=== PATIENT | female | born 1955 | race Caucasian/White ===

== ENCOUNTER 2016-06-16 11:51 | Day surgery (SDC) | payer BC ==
--- NOTE | ~2016-06-16 | EGD ---
EGD REPORT [facility] [address] [address] NAME: SARAH ZHENG : 55 STATUS : [facility]#: [id number] AGE: 60 ADM/REG DATE : 06/16/16 MR#: [id number] REPORT SERV DATE: 07/17/16 DICTATED BY: CLARISSA KYLE DATE: 07/17/16 REPORT STATUS : Draft [facility] DATE: 07/17/16 Pulmonology Patient Name: Sarah Zheng Procedure Date: 06/16/2016 6:03 PM Date of : 1955 Attending MD: DANNY KYLE MD Procedure Date No Time: 06/16/2016 Procedure: Thoracentesis Indications: Right sided pleural effusion Providers: DANNY KYLE MD Referring MD: MATY RAMOS IV Medicines: Intradernal lidocaine 2% with epinephrine 1:100,000 10 mls Complications: No immediate complications Procedure: Pre-Anesthesia Assessment: - A History and Physical has been performed. Patient meds and allergies have been reviewed. The risks and benefits of the procedure and the sedation options and risks were discussed with the patient. All questions were answered and informed consent was obtained. Patient identification and proposed procedure were verified prior to the procedure by the physician and the nurse in the procedure room. Mental Status Examination: alert and oriented. Respiratory Examination: poor air movement. CV Examination: normal and RRR, no murmurs, no S3 or S4. ASA Grade Assessment: III - A patient with severe systemic disease. After reviewing the risks and benefits, the patient was deemed in satisfactory condition to undergo the procedure. The anesthesia plan was to use minimal sedation / analgesia (anxiolysis). Immediately prior to administration of medications, the patient was re-assessed for adequacy to receive sedatives. The heart rate, respiratory rate, oxygen saturations, blood pressure, adequacy of pulmonary ventilation, and response to care were monitored throughout the procedure. The physical status of the patient was re-assessed after the procedure. Findings: After consent was obtained, a time out was performed. The patient was placed in the appropriate position. Ultrasound survey of the left chest was performed with identification of pleural fluid and surrounding structures including the diaphragm and lung tissue. Ultrasound image interpretation: The depth to the chest wall is approximately 4 cms. The depth of the pocket is approximately 3 cms. Ultrasound images were permanently documented. The site of entry was EGD REPORT [address] [address] NAME: SARAH ZHENG : 55 STATUS : [facility]#: [id number] AGE: 60 ADM/REG DATE : 06/16/16 MR#: [id number] REPORT SERV DATE: 07/17/16 DICTATED BY: CLARISSA KYLE DATE: 07/17/16 REPORT STATUS : Draft TRANSCRIBED BY: [employer] SERVICES DATE: 07/17/16 marked using ultrasound guidance. After donning cap, mask, sterile gown and gloves, the patient was prepped with chlorhexadine and drapped. 10 ccs of 2% lidocaine with epinephrine 1:100,000 was used to numb the region. A finder needle was then used to locate fluid with aspiration of serous fluid. A small incision was performed at insertion site and a temporary 8 Tajik pleural catheter was inserted over a needle. The catheter was attached to a suction device (vacuum bottle) and 50 mls of serous fluid was removed. Impression: 50 mls of serous fluid was removed. Additional pleural fluid was noted but could not be removed. Recommendation: - Await test results. - Chest X-ray post-procedure. - Follow up with referring physician. Attending Participation: I personally performed the entire procedure. DANNY KYLE MD 06/16/2016 6:06 PM This report has been signed electronically. Number of Addenda: 0 Note Initiated On: 06/16/2016 6:03 PM [address] [id number]
--- NOTE | ~2016-06-16 | EGD ---
EGD REPORT [facility] [address] [place] [address] NAME: SARAH ZHENG : 55 STATUS : [facility]#: [id number] AGE: 60 ADM/REG DATE : 06/16/16 MR#: [id number] REPORT SERV DATE: 07/17/16 DICTATED BY: CLARISSA KYLE DATE: 07/17/16 REPORT STATUS : Draft [facility] DATE: 07/17/16 Pulmonology Patient Name: Sarah Zheng Procedure Date: 06/16/2016 6:03 PM Date of : 1955 Attending MD: DANNY KYLE MD Procedure Date No Time: 06/16/2016 Procedure: Thoracentesis Indications: Right sided pleural effusion Providers: DANNY KYLE MD Referring MD: MATY RAMOS IV Medicines: Intradernal lidocaine 2% with epinephrine 1:100,000 10 mls Complications: No immediate complications Procedure: Pre-Anesthesia Assessment: - A History and Physical has been performed. Patient meds and allergies have been reviewed. The risks and benefits of the procedure and the sedation options and risks were discussed with the patient. All questions were answered and informed consent was obtained. Patient identification and proposed procedure were verified prior to the procedure by the physician and the nurse in the procedure room. Mental Status Examination: alert and oriented. Respiratory Examination: poor air movement. CV Examination: normal and RRR, no murmurs, no S3 or S4. ASA Grade Assessment: III - A patient with severe systemic disease. After reviewing the risks and benefits, the patient was deemed in satisfactory condition to undergo the procedure. The anesthesia plan was to use minimal sedation / analgesia (anxiolysis). Immediately prior to administration of medications, the patient was re-assessed for adequacy to receive sedatives. The heart rate, respiratory rate, oxygen saturations, blood pressure, adequacy of pulmonary ventilation, and response to care were monitored throughout the procedure. The physical status of the patient was re-assessed after the procedure. Findings: After consent was obtained, a time out was performed. The patient was placed in the appropriate position. Ultrasound survey of the left chest was performed with identification of pleural fluid and surrounding structures including the diaphragm and lung tissue. Ultrasound image interpretation: The depth to the chest wall is approximately 4 cms. The depth of the pocket is approximately 3 cms. Ultrasound images were permanently documented. The site of entry was EGD REPORT [address] [address] NAME: SARAH ZHENG : 55 STATUS : [facility]#: [id number] AGE: 60 ADM/REG DATE : 06/16/16 MR#: [id number] REPORT SERV DATE: 07/17/16 DICTATED BY: CLARISSA KYLE DATE: 07/17/16 REPORT STATUS : Draft TRANSCRIBED BY: [employer] SERVICES DATE: 07/17/16 marked using ultrasound guidance. After donning cap, mask, sterile gown and gloves, the patient was prepped with chlorhexadine and drapped. 10 ccs of 2% lidocaine with epinephrine 1:100,000 was used to numb the region. A finder needle was then used to locate fluid with aspiration of serous fluid. A small incision was performed at insertion site and a temporary 8 Latvian pleural catheter was inserted over a needle. The catheter was attached to a suction device (vacuum bottle) and 50 mls of serous fluid was removed. Impression: 50 mls of serous fluid was removed. Additional pleural fluid was noted but could not be removed. Recommendation: - Await test results. - Chest X-ray post-procedure. - Follow up with referring physician. Attending Participation: I personally performed the entire procedure. DANNY KYLE MD 06/16/2016 6:06 PM This report has been signed electronically. Number of Addenda: 0 Note Initiated On: 06/16/2016 6:03 PM [address] [address]
[~2016-06-16 11:51] MED LIST: ACET500CAP PO; ALIGN4 MG PO; ASA5GR PO; ASAB PO; BREO ELLIPTA INH; CALTRAT600 PO; CENTRUM TAB1 TAB PO; DILT-XR180 MG PO; ENBREL25 MG SC; FLEX PO; FLEXERIL5 MG PO; FOLIC PO; GLUCCHONDR PO; GLUCPH PO; MAGOX4 PO; MEVACOR40 MG PO; MOBIC15 MG PO; MTX2.5 PO; MULTIPLE VIT PO; NAP500 PO; NEUR100 PO; NORV10 PO; OS500+D PO; PAX20 PO; POT GLUCONAT595 M1 OR; PRAVACHOL40 MG PO; PRILO PO; PRIN20 PO; PRIN5 PO; SINGULAIR1 PO; SPIRIVA INH; ULTRAM50 PO; VENTOLIN HFA INH; VITAMIN D1000 UNI1 PO; VITC500 PO; XOPENEX1.25 MG/3 INH; [UNRECOGNIZED DRUG - OTHER]
[2016-06-16 17:36] LABS: GLUCOSE BODY FL (NOT ORD) 54 MG/DL; LDH BODY FLUID (NOT ORD) 219 U/L; PROTEIN BODY FLUID 4.3 G/DL
[2016-06-16 18:12] LABS: BF TOTAL CELL CT (NOT ORD 193 /MM3; BODY FLUID RBC (NOT ORD) 1980 /MM3
[2016-06-16 19:49] LABS: BD FL LYMPH (NOT ORD) 63 %; BD FL SOURCE (NOT ORD) PLEURAL; BF BASO (NOT OF) 0 %; BF LARGE MONONUCLEAR 30 %; BODY FLUID EOS (NOT ORD) 0 %; BODY FLUID SEG (NOT ORD) 7 %
== END 2016-06-16 23:59 | disposition home or self-care (01) ==
LOC: DMU 11:51
PROVIDERS: Internal Medicine Critical Care Medicine; Physician Assistant Medical
PROC: BB4BZZZ Ultrasonography of Pleura (ICD-10-PCS; 2016-06-16)
PROC: 0W9930Z Drainage of Right Pleural Cavity with Drainage Device, Percutaneous Approach (ICD-10-PCS; principal; 2016-06-16 13:00)
DX: J90 Pleural effusion, not elsewhere classified (principal); J44.9 Chronic obstructive pulmonary disease, unspecified; I10 Essential (primary) hypertension; E78.00 Pure hypercholesterolemia, unspecified; M06.9 Rheumatoid arthritis, unspecified; M19.90 Unspecified osteoarthritis, unspecified site; F41.0 Panic disorder [episodic paroxysmal anxiety]; Z79.82 Long term (current) use of aspirin; Z79.51 Long term (current) use of inhaled steroids; Z79.84 Long term (current) use of oral hypoglycemic drugs; Z79.1 Long term (current) use of non-steroidal anti-inflammatories (NSAID); Z79.899 Other long term (current) drug therapy; Z87.891 Personal history of nicotine dependence; Z90.89 Acquired absence of other organs; Z98.890 Other specified postprocedural states; Z90.49 Acquired absence of other specified parts of digestive tract; Z96.653 Presence of artificial knee joint, bilateral
CPT/HCPCS: 71010; 82945; 83615; 84157; 87015; 87070; 87102; 87116; 87205; 88112; 89051